=== PATIENT | female | born 1990 | race Caucasian/White ===

== ENCOUNTER → 2019-06-13 | Emergency (ER) | payer MEDICAID ==
[~2019-06-13] VITALS: Ht 124.5 cm; Wt 56.0 kg
[~2019-06-13] MED LIST: BUPIVAcaine/PF 2.5 mg/ml (0.25%) 30ml vial IJ ONE; BUPIVAcaine/PF 2.5mg/ml (0.25%) 10ml vial IJ ONE; HYDR-3965 PO; LIDOcaine 1% 30ml preserv. free vial IJ STA; LORazepam 2 mg/ml vial IV ONE; etomidate 2mg/ml inj. IV ONE; fentaNYL/PF 50MCG/1 ML 2ML syringe IV ONE; fentaNYL/PF 50MCG/1 ML 2ML syringe IV STA; morphine 2 MG/ML inj. syringe IV ONE; morphine 4 MG/ML inj SYRINge IV ONE
--- NOTE | 2019-06-13 09:51 | NUR ---
Arlette Ramirez at bedside.
--- NOTE | 2019-06-13 10:16 | NUR ---
test desk supervisor attached to patient.
--- NOTE | 2019-06-13 11:36 | NUR ---
Arlette DRAPER and Dr. Finley at bedside to administer lidocaine to left shoulder.
--- NOTE | 2019-06-13 14:24 | NUR ---
started second attempt for moderate sedation left shoulder reduction.
--- NOTE | 2019-06-13 15:10 | NUR ---
REFUSED TO SIGN SECOND CONSENT FOR LEFT SHOULDER REDUCTION.STATED "I ALREADY SIGNED THE FIRST ONE"."THIS IS SILLY".
--- NOTE | 2019-06-13 15:12 | NUR ---
CHARGE NURSE/MICHELE MADE AWARE ABOUT MD REFUSING TO SIGN CONSENT.
[2019-06-13 16:41] VITALS: BP 132/65
== END | disposition home or self-care (01) ==
LOC: ER 09:39
DX: S43.005A Unspecified dislocation of left shoulder joint, initial encounter (principal); Z98.890 Other specified postprocedural states; W18.09XA Striking against other object with subsequent fall, initial encounter; Y93.89 Activity, other specified; Y92.89 Other specified places as the place of occurrence of the external cause; Y99.9 Unspecified external cause status
CPT/HCPCS: 23650; 73020; 73030; 73070; 96374; 96375; 96376; 99152; 99153; 99285; J2001; J2060; J2270; J3010; J3490

== ENCOUNTER 2019-06-20 08:32 | Emergency (ER) | payer MEDICAID ==
[~2019-06-20] VITALS: Ht 124.5 cm; Wt 37.0 kg
[~2019-06-20 08:32] MED LIST changes: -BUPIVAcaine/PF 2.5 mg/ml (0.25%) 30ml vial IJ ONE; -BUPIVAcaine/PF 2.5mg/ml (0.25%) 10ml vial IJ ONE; -LIDOcaine 1% 30ml preserv. free vial IJ STA; -LORazepam 2 mg/ml vial IV ONE; -etomidate 2mg/ml inj. IV ONE; -fentaNYL/PF 50MCG/1 ML 2ML syringe IV ONE; -fentaNYL/PF 50MCG/1 ML 2ML syringe IV STA; -morphine 2 MG/ML inj. syringe IV ONE; -morphine 4 MG/ML inj SYRINge IV ONE
--- NOTE | 2019-06-20 09:16 | NUR ---
AWAITING ED PROVIDER.
--- NOTE | 2019-06-20 09:21 | NUR ---
ROOSEVELT DRAPER AT BEDSIDE.
[2019-06-20] MEDS ORDERED: HYDROcodone/acetaminophen 10/325mg tab PO ONE (09:40)
[2019-06-20] MEDS ORDERED: ondansetron 4mg rapidly disintigrating tab PO ONE (09:40)
[2019-06-20] MEDS ORDERED: HYDR-4383 PO (10:12)
[2019-06-20] MEDS ORDERED: ONDA4TAB6 PO (10:12)
[2019-06-20 10:27] VITALS: BP 109/52
== END 2019-06-20 10:35 | disposition home or self-care (01) ==
LOC: ER 08:32
DX: S43.005D Unspecified dislocation of left shoulder joint, subsequent encounter (principal); Z98.890 Other specified postprocedural states; W18.09XD Striking against other object with subsequent fall, subsequent encounter
CPT/HCPCS: 29105; 73030; 73080; 99283

== ENCOUNTER 2019-06-21 11:47 | Inpatient (IN) | payer MEDICAID ==
[~2019-06-21] VITALS: Ht 124.5 cm; Wt 56.0 kg
[~2019-06-21 11:47] MED LIST changes: +HYDR-4383 PO; +ONDA4TAB6 PO
[2019-06-21] MEDS ORDERED: fentaNYL/PF 50MCG/1 ML 2ML syringe IV ONE ×3 (13:20→15:25)
[2019-06-21] MEDS ORDERED: BUPIVAcaine/PF 2.5 mg/ml (0.25%) 30ml vial IJ ONE (13:20)
[2019-06-21] MEDS ORDERED: propofol 10mg/ml 20ml vial IV ONE (13:20)
[2019-06-21] MEDS ORDERED: ondansetron/PF 4mg/2ml inj IV ONE (13:20)
[2019-06-21] MEDS ORDERED: BUPIVAcaine/PF 2.5mg/ml (0.25%) 10ml vial IJ ONE (13:30)
[2019-06-21] MEDS ORDERED: LIDOcaine 1% 30ml preserv. free vial ONE (14:00)
[2019-06-21] MEDS ORDERED: MIDAZolam 5mg/ml 2ml vial IV ONE (15:25)
[2019-06-21] MEDS: fentaNYL/PF 50MCG/1 ML 2ML syringe IV ONE ×2 (15:26→17:28)
[2019-06-21] MEDS: normal saline 1000ml 1,000 ML IV SCH ×2 (15:26→18:03)
--- NOTE | 2019-06-21 16:00 | NUR ---
PATIENT RECEIVED 200 MCG FENTANYL IV, 3 MG VERSED AND 20 MG PROPOFOL IV DURING ATTEMPT AND LEFT SHOULDER REDUCTION
[2019-06-21] MEDS ORDERED: magnesium 2GM in 50ml NS 50 ML IV PRN (16:10)
[2019-06-21] MEDS ORDERED: magnesium hydroxide 30ml (MOM) UD suspension PO PRN (16:10)
[2019-06-21] MEDS ORDERED: potassium Cl 20 mEq SR tablet PO PRN ×2 (16:10)
[2019-06-21] MEDS ORDERED: magnesium 4gm in 100ml NS 100 ML IV PRN (16:10)
[2019-06-21] MEDS ORDERED: mag hydrox/Alum hydrox/simeth 30ml oral suspension PO PRN (16:10)
[2019-06-21] MEDS ORDERED: ondansetron/PF 4mg/2ml inj IV PRN (16:10)
[2019-06-21] MEDS ORDERED: potassium CL 10mEq/100ml bag 100 ML IV PRN ×2 (16:10)
[2019-06-21] MEDS ORDERED: diphenhydrAMINE 25mg capsule PO PRN (16:10)
[2019-06-21] MEDS ORDERED: magnesium Cl slow-release 64mg tablet PO PRN (16:10)
[2019-06-21] MEDS ORDERED: acetaminophen 325mg tablet PO PRN (16:10)
[2019-06-21] MEDS ORDERED: HYDROcodone/acetaminophen 10/325mg tab PO PRN (16:10)
[2019-06-21] MEDS ORDERED: HYDROcodone/acetaminophen 5mg/325mg tablet PO PRN (16:10)
[2019-06-21 16:58] LABS: BASOPHILS % (AUTO) 0.5 % (0-1); EOSINOPHILS # (AUTO) 0.1 X10'3 (0-0.9); EOSINOPHILS % (AUTO) 1.2 % (0-6); HEMATOCRIT 35.9 % (35.0-45.0); HEMOGLOBIN 12.1 g/dl (12.0-16.0); LYMPHOCYTES # (AUTO) 2.4 X10'3 (1.1-4.8); LYMPHOCYTES % (AUTO) 28.8 % (21-51); MEAN CORPUSCULAR HEMOGLOBIN 30.1 PG (27.0-31.0); MEAN CORPUSCULAR HGB CONC 33.7 g/dL (33.0-36.5); MEAN CORPUSCULAR VOLUME 89.2 FL (78-98); MEAN PLATELET VOLUME 7.6 FL (7.4-10.4); MONOCYTES # (AUTO) 0.3 X10'3 (0-0.9); NEUTROPHILS # (AUTO) 5.5 X10'3 (1.8-7.7); NEUTROPHILS % (AUTO) 65.5 % (42-75); PLATELET COUNT 441 X10'3 (140-440); RED BLOOD COUNT 4.02 X10'6 (4.20-5.60); RED CELL DISTRIBUTION WIDTH 14.1 % (11.5-14.5); WHITE BLOOD COUNT 8.4 X10'3 (4.5-11.0)
--- NOTE | 2019-06-21 17:00 | NUR ---
RECEIVED REPORT FROM JAY MARTINEZ IN ER
--- NOTE | 2019-06-21 17:01 | NUR ---
PHONE REPORT TO JUAN LOUINDUSTRIAL HYGENIST. PATIENT TO GO TO ROOM 0975E OFF TELE WITH ALL HER BELONGINGS
[2019-06-21 17:02] LABS: ALANINE AMINOTRANSFERASE 33 U/L (12-78); ALBUMIN 4.1 G/DL (3.4-5.0); ALBUMIN/GLOBULIN RATIO 1.2 (1.1-1.5); ALKALINE PHOSPHATASE 75 IU/L (46-116); ANION GAP 11 (8-16); ASPARTATE AMINO TRANSFERASE 32 U/L (10-37); BILIRUBIN,TOTAL 0.3 MG/DL (0.1-1.0); BLOOD UREA NITROGEN 9 MG/DL (7-18); BUN/CREATININE RATIO 14.8 (6.6-38.0); CALCIUM 9.2 MG/DL (8.5-10.1); CHLORIDE 104 MMOL/L (99-107); CREATININE 0.61 MG/DL (0.40-0.90); GLUCOSE 86 MG/DL (70-104); SODIUM 140 MMOL/L (135-145); TOTAL CARBON DIOXIDE 25.3 MMOL/L (24-32); TOTAL PROTEIN 7.4 G/DL (6.4-8.2); eGFR > 90 ML/MIN
--- NOTE | 2019-06-21 17:39 | NUR ---
NO HOME MEDS
--- NOTE | 2019-06-21 17:46 | NUR ---
pt arrived on floor awake and alert
[2019-06-21 17:51] VITALS: BP 149/82
--- NOTE | 2019-06-21 18:11 | NUR ---
GAVE REPORT TO November,
--- NOTE | 2019-06-21 19:35 | NUR ---
pt crying wanted to go home,explained why she is here.pt adamant really wanted to go home,informed charge lpn Stacy
--- NOTE | 2019-06-21 19:41 | NUR ---
Call placed to MD Hernandez about patient wanting to leave AMA as patient states she does not want to stay here tonight. aware of patient wanting to leave.
--- NOTE | 2019-06-21 19:53 | NUR ---
pt dcd AMA,Dr. 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
[2019-06-22] MEDS ORDERED: K and/or MAG REPLACEMENT MC SCH (08:00)
== END 2019-06-21 20:00 | disposition left against medical advice (07) | DRG 342 ==
LOC: ER 11:47 → ED HOLD 16:08 → ORTHO 4S 17:45
PROVIDERS: ADMIT Family Medicine; ATTEND Family Medicine
DX: S43.005A Unspecified dislocation of left shoulder joint, initial encounter (principal); Z53.29 Procedure and treatment not carried out because of patient's decision for other reasons; W18.39XA Other fall on same level, initial encounter; Z79.899 Other long term (current) drug therapy; Z91.19 Patient's noncompliance with other medical treatment and regimen; Z81.8 Family history of other mental and behavioral disorders; Y93.89 Activity, other specified; Y92.89 Other specified places as the place of occurrence of the external cause; Y99.8 Other external cause status
CPT/HCPCS: 36415; 73020; 73030; 80053; 85025; 87081; 93005; 96374; 96375; 99285; G0378; J2001; J2250; J2405; J2704; J3010; J3490; J7030

== ENCOUNTER 2019-06-24 20:00 | Emergency (ER) | payer MEDICAID ==
[~2019-06-24] VITALS: Ht 124.5 cm; Wt 54.5 kg
[2019-06-24] MEDS ORDERED: MIDAZolam 5mg/ml 2ml vial IV ONE (20:25)
[2019-06-24] MEDS ORDERED: normal saline 1000ML IV soln IVB ONE (20:25)
[2019-06-24] MEDS ORDERED: propofol 10mg/ml 20ml vial IV ONE (20:25)
[2019-06-24] MEDS ORDERED: ondansetron/PF 4mg/2ml inj IV ONE ×2 (20:25→21:35)
[2019-06-24] MEDS ORDERED: HYDR-4383 PO (21:16)
[2019-06-24] MEDS ORDERED: ketorolac trometh. 30mg/ml inj. IV ONE (21:30)
[2019-06-24] MEDS ORDERED: HYDROcodone/acetaminophen 5mg/325mg tablet PO ONE (21:45)
--- NOTE | 2019-06-24 21:46 | NUR ---
PT IN PAIN AND FELT LIKE HER SHOULDER WAS OUT OF PLACE AGAIN. ROLF DRAPER NOTIFIED AND CAME TO TALK TO PT ABOUT FURTHER MANAGEMENT WITH ORTHO CLINIC AND POSSIBLY SURGERY. PT VERBALIZED UNDERSTANDING FOLLOW UP CARE
[2019-06-24] MEDS ORDERED: LORazepam 1 MG tablet PO ONE (22:30)
[2019-06-24 23:57] VITALS: BP 95/47
== END 2019-06-25 | disposition home or self-care (01) ==
LOC: ER 20:00
DX: S43.085A Other dislocation of left shoulder joint, initial encounter (principal); Z98.890 Other specified postprocedural states; Z79.899 Other long term (current) drug therapy; W01.0XXA Fall on same level from slipping, tripping and stumbling without subsequent striking against object, initial encounter; Y93.89 Activity, other specified; Y92.89 Other specified places as the place of occurrence of the external cause; Y99.8 Other external cause status
CPT/HCPCS: 23650; 73030; 96374; 96375; 96376; 99291; J1885; J2250; J2405; J2704; J7030; 94760

== ENCOUNTER 2019-07-04 04:28 | Emergency (ER) | payer MEDICAID ==
[~2019-07-04] VITALS: Ht 124.5 cm; Wt 54.5 kg
[~2019-07-04 04:28] MED LIST changes: -HYDR-3965 PO; -ONDA4TAB6 PO
[2019-07-04] MEDS ORDERED: acetaminophen 325mg tablet PO ONE ×2 (04:45)
[2019-07-04] MEDS ORDERED: MIDAZolam 5mg/ml 2ml vial IV ONE (05:05)
[2019-07-04] MEDS ORDERED: ondansetron/PF 4mg/2ml inj IV ONE (05:05)
[2019-07-04] MEDS ORDERED: etomidate 2mg/ml inj. IV ONE (05:05)
[2019-07-04] MEDS ORDERED: HYDR-4353 PO (05:49)
[2019-07-04] MEDS ORDERED: ONDA4TAB6 PO (05:49)
[2019-07-04] MEDS ORDERED: morphine 4 MG/ML inj SYRINge IV ONE (06:10)
[2019-07-04] MEDS ORDERED: HYDROcodone/acetaminophen 10/325mg tab PO ONE (06:50)
--- NOTE | 2019-07-04 07:00 | NUR ---
pt called her friend to be picking her up
--- NOTE | 2019-07-04 08:13 | NUR ---
pt reports that her ride is still on the way
[2019-07-04 08:27] VITALS: BP 140/72
== END 2019-07-04 08:29 | disposition home or self-care (01) ==
LOC: ER 04:29
DX: S43.084A Other dislocation of right shoulder joint, initial encounter (principal); Z98.890 Other specified postprocedural states; Z79.899 Other long term (current) drug therapy; W18.39XA Other fall on same level, initial encounter; Y93.89 Activity, other specified; Y92.89 Other specified places as the place of occurrence of the external cause; Y99.8 Other external cause status
CPT/HCPCS: 23650; 73020; 73030; 96374; 99285; J2250; J2270; J2405; 94760

== ENCOUNTER 2019-07-18 11:44 | Emergency (ER) | payer MEDICAID ==
[~2019-07-18] VITALS: Ht 124.5 cm; Wt 55.0 kg
[~2019-07-18 11:44] MED LIST changes: +HYDR-4353 PO; +ONDA4TAB6 PO
[2019-07-18 14:04] VITALS: BP 136/83
== END 2019-07-18 14:08 | disposition home or self-care (01) ==
LOC: ER 11:45
DX: M25.512 Pain in left shoulder (principal); R20.0 Anesthesia of skin; Z98.890 Other specified postprocedural states; Z79.899 Other long term (current) drug therapy
CPT/HCPCS: 73030; 99284

== ENCOUNTER 2019-08-29 18:46 | Emergency (ER) | payer MEDICAID ==
[~2019-08-29] VITALS: Ht 124.5 cm; Wt 54.0 kg
[~2019-08-29 18:46] MED LIST changes: -HYDR-4353 PO
[2019-08-29] MEDS ORDERED: NO HOME MEDS (20:10)
[2019-08-29] MEDS ORDERED: propofol 10mg/ml 20ml vial IV ONE (20:30)
[2019-08-29] MEDS ORDERED: HYDROcodone/acetaminophen 5mg/325mg tablet PO ONE ×3 (22:05→22:40)
[2019-08-29] MEDS ORDERED: HYDR-3965 PO (22:07)
[2019-08-29 22:59] VITALS: BP 147/81
== END 2019-08-29 23:14 | disposition home or self-care (01) ==
LOC: ER 18:46
DX: M24.412 Recurrent dislocation, left shoulder (principal); Z98.890 Other specified postprocedural states; Z79.899 Other long term (current) drug therapy; W01.0XXA Fall on same level from slipping, tripping and stumbling without subsequent striking against object, initial encounter; Y93.89 Activity, other specified; Y92.89 Other specified places as the place of occurrence of the external cause; Y99.8 Other external cause status
CPT/HCPCS: 23650; 73030; 94760; 99152; 99153; 99285

== ENCOUNTER 2019-09-27 13:44 | Emergency (ER) | payer MEDICAID ==
[~2019-09-27] VITALS: Ht 127 cm; Wt 53.0 kg
[~2019-09-27 13:44] MED LIST changes: -HYDR-4383 PO; +NO HOME MEDS; -ONDA4TAB6 PO
[2019-09-27] MEDS ORDERED: LORazepam 2 mg/ml vial IV ONE (15:45)
[2019-09-27] MEDS ORDERED: HYDROmorphone 1 mg/ml syringe IV ONE ×2 (15:45→16:50)
[2019-09-27] MEDS ORDERED: etomidate 2mg/ml inj. IV ONE ×3 (16:05→17:20)
--- NOTE | 2019-09-27 16:46 | NUR ---
Portable XR at bedside for post-reduction film.
--- NOTE | 2019-09-27 16:47 | NUR ---
XRay shows incomplete reduction; Dr. Loco to attempt 2nd reduction. Team at bedside.
[2019-09-27] MEDS ORDERED: morphine 4 MG/ML inj SYRINge IV ONE (17:20)
--- NOTE | 2019-09-27 17:25 | NUR ---
Attempt x2 for reduction made at 1702. Please see procedural notes.
[2019-09-27] MEDS ORDERED: NORMAL SALINE IV ONE ×2 (18:25→19:25)
[2019-09-27] MEDS ORDERED: KETAMINE IV ONE ×2 (18:25→19:25)
--- NOTE | 2019-09-27 19:27 | NUR ---
constulting with pharmacy on Ketamine drip.
--- NOTE | 2019-09-27 19:39 | NUR ---
Ketamine drip setting on pump only set up for continuous drip, Pharmacist Saulo came to ER and set pump with me so patient will get 10mg dose over 10min.
--- NOTE | 2019-09-27 20:01 | NUR ---
Patient with provider, she is refusing to go home, says she cannot take care of herself.
[2019-09-27] MEDS ORDERED: IBUP-1984 PO (20:19)
--- NOTE | 2019-09-27 20:56 | NUR ---
Helped patient up to bedside commode w/o problem.
--- NOTE | 2019-09-27 22:45 | NUR ---
Patient wanting to know when she will get a room. I already spoke with Dr. Villalta and relayed to the patient she is not being admitted. We are holding her in the ER for a social service consult, as she told us she could not take care of herself and would not leave. Patient upset want to speak with MD, I will pass info on to him.
--- NOTE | 2019-09-27 23:00 | NUR ---
spoke with the patient and advised her that Dr. Reynoso declined to admit her, said this is chronic and he will see her on an outpatient basis. We are only keeping her in the ER as a coutesy, because she refused to be discharge and didn't think she was safe. She will meet with manager social responsibility in the am for evaluation.
--- NOTE | 2019-09-27 23:09 | NUR ---
Patient called me back into the room and wanted to know when social welfare administrator will see her in the morning. I advised her they probably won't be her until maybe 0800, but I was unsure. She wanted me to make an apt. with them so she could leave first thing in the morning. I told her it doesn't work that way, we are a hospital not an outpatient clinic and we don't make apts. SS will see her when they can. She was angry and crying, not happy about this. I again explained Dr. Reynoso declined to admit her and will see her outpatient, if she need help SS will coordinate with her in the am. She not wants to be discharged home and asked for a work note.
--- NOTE | 2019-09-27 23:13 | NUR ---
ROYA vergara's went in room to help pt with shoulder emobilizer and dressing, they advised me she was crying and refused help. She now wants to speak with the charge nurse. Meeta was advised.
[2019-09-27] MEDS ORDERED: HYDR-3965 PO (23:33)
--- NOTE | 2019-09-27 23:34 | NUR ---
Dr. Georges with the patient now.
[2019-09-27 23:44] VITALS: BP 122/62
[2019-09-28] MEDS ORDERED: ondansetron 4mg rapidly disintigrating tab PO ONE (00:05)
== END 2019-09-28 00:25 | disposition home or self-care (01) ==
LOC: ER 13:44
DX: M24.411 Recurrent dislocation, right shoulder (principal); Z98.890 Other specified postprocedural states; Z79.899 Other long term (current) drug therapy
CPT/HCPCS: 23650; 73020; 73030; 96374; 99152; 99153; 99285; J1170; J2060; J2270

== ENCOUNTER 2019-10-09 17:51 | Emergency (ER) | payer MEDICAID ==
[~2019-10-09] VITALS: Ht 124.5 cm; Wt 54.5 kg
[~2019-10-09 17:51] MED LIST changes: +HYDR-3965 PO
[2019-10-09 18:07] VITALS: BP 129/86
== END 2019-10-09 21:41 | disposition home or self-care (01) ==
LOC: ER 17:52
DX: M24.412 Recurrent dislocation, left shoulder (principal); Z98.890 Other specified postprocedural states; Z79.899 Other long term (current) drug therapy
CPT/HCPCS: 99284

== ENCOUNTER 2020-03-13 13:03 | Emergency (ER) | payer MEDICAID ==
[~2020-03-13] VITALS: Ht 132.1 cm; Wt 54.5 kg
[~2020-03-13 13:03] MED LIST changes: -HYDR-3965 PO
[2020-03-13 13:06] VITALS: BP 135/78
--- NOTE | 2020-03-13 13:16 | NUR ---
PT GIVEN ICE PACK FOR SHOULDER PAIN
--- NOTE | 2020-03-13 13:17 | NUR ---
PT TO XRAY
[2020-03-13] MEDS ORDERED: ibuprofen tablet 400 MG TABLET PO ONE (13:50)
== END 2020-03-13 14:13 | disposition home or self-care (01) ==
LOC: ER 13:04
DX: S43.014A Anterior dislocation of right humerus, initial encounter (principal); S43.034A Inferior dislocation of right humerus, initial encounter; R20.2 Paresthesia of skin; Z98.890 Other specified postprocedural states; W01.0XXA Fall on same level from slipping, tripping and stumbling without subsequent striking against object, initial encounter; Y93.89 Activity, other specified; Y92.89 Other specified places as the place of occurrence of the external cause; Y99.8 Other external cause status
CPT/HCPCS: 73030; 99283